=== PATIENT | female | born 1980 | race Caucasian/White ===

== ENCOUNTER → 2024-09-21 16:55 | Outpatient (REF) | payer BC, SELFPAY | LOC: RAD 16:55 | PROVIDERS: ATTENDING PHYSICIAN Obstetrics & Gynecology; FAMILY PHYSICIAN Family Medicine | DX: N93.9 Abnormal uterine and vaginal bleeding, unspecified (principal) | CPT/HCPCS: 76830; 76856 ==

== ENCOUNTER → 2024-09-26 09:50 | Outpatient (REF) | payer BC, SELFPAY | LOC: WDC 09:50 | PROVIDERS: ATTENDING PHYSICIAN Obstetrics & Gynecology | DX: Z12.31 Encounter for screening mammogram for malignant neoplasm of breast (principal) | CPT/HCPCS: 77063; 77067 ==

== ENCOUNTER 2024-10-12 14:43 | Emergency (ER) | payer BC, SELFPAY ==
[2024-10-12 15:00] VITALS: BP 116/81
--- NOTE | 2024-10-12 15:11 | ED.GENMED ---
ED Provider Triage
-
Patient seen by provider in Triage?: Seen in Triage
Attestation: A medical screening examination has been initiated by a qualified medical provider. Based on the assessment performed at this time, it has been determined that an emergent medical condition may exist and the patient has been informed
that further medical evaluation and possible additional diagnostic testing may be needed.
HPI: Patient has had some diarrhea, cough, congestion and generally feeling unwell. This morning he had a syncopal episode following coughing spell. Found to have a fever of 103 here, patient states she was unaware of any fevers at home. No
medications taken prior to arrival.
GENERAL: Alert , in no apparent distress
EYE: No visual abnormalities.
NECK: Trachea midline
ENT: No visible abnormalities.
LUNGS: No acute respiratory distress
NEUROLOGICAL: Alert and oriented
SKIN: Skin intact. No visible changes.
MUSCULOSKELETAL: Moving extremities normally
PSYCH: Normal and appropriate interaction.
This is a medical evaluation conducted in person to initiate diagnostic evaluation and provide initial therapeutics. Please see further documentation by the treating clinician. 44-year-old female presenting to the ER for evaluation of flulike
symptoms that started over the last 24 hours.
History of Present Illness
General
Chief Complaint: Fainting/Passed Out
Source: patient
Time Seen by Provider: 10/12/24 16:23
History of Present Illness
History of Present Illness:
44-year-old female presenting to the ER for evaluation of flulike symptoms that began this morning, cough, sore throat, congestion, diarrhea and generalized fatigue. Patient found to be febrile on arrival here but was unaware of any fevers at home.
During a coughing spell around 6 AM patient did have a syncopal episode. Reports no chest pain, shortness of breath, abdominal pain or any other concerns presently. No known sick contacts or recent travel.
Past History
Past History
ED Past Medical History: None
ED Past Surgical History: None
Social History
Tobacco: Non-smoker
Alcohol: None
Drug: None
Living: with family
Employment: Employed
Review of Systems
Review of Systems
All Other Systems: ROS reviewed and negative except as documented in HPI and ROS
Phy Exam
Physical Exam
Physical Exam:
GENERAL: Alert , in no apparent distress
EYE: conjunctiva clear
Head: Normocephalic atraumatic
NECK: Supple,
ENT: mmm.
LUNGS: no acute respiratory distress
NEUROLOGICAL: Alert and oriented
SKIN: Warm and dry, skin intact.
MUSCULOSKELETAL: well perfused.
PSYCH: Normal and appropriate interaction.
Scores
Heart Failure Risk
Heart Failure Risk Score: Not Applicable
Heart Score for Chest Pain Patients
STEMI patient?: Not applicable
Withdrawal Assessment of Alcohol
Withdrawal Assessment Completed?: Not applicable
Course
Orders/Labs/Results
Orders:
Orders
10/12/24 14:44
Electrocardiogram (*1) Urgent
Reason for Study: Syncope
EKG- Treatment ONCE
10/12/24 15:11
Acetaminophen [Tylenol] 650 mg .ROUTE .STK-MED ONE
Acetaminophen [Tylenol] 650 mg PO NOW STA
10/12/24 15:15
COVID-19 Antigen Urgent
Source: Nasal Swab
Influenza A+B Rapid Molecular Urgent
ALESSIA Source: Nasal Swab
Specimen Description:
Vital Signs
Initial and Last Documented VS:
Initial Vital Signs
Temp Resp BP Pulse Ox
103.2 F H 18 116/81 97
10/12/24 15:00 10/12/24 15:00 10/12/24 15:00 10/12/24 15:00
Last Documented Vital Signs
Temp Resp BP Pulse Ox
103.2 F H 18 116/81 97
10/12/24 15:00 10/12/24 15:00 10/12/24 15:00 10/12/24 15:00
MDM/Problems Addressed
Differential Diagnosis Includes:
COVID, flu, pneumonia, vagal event
MDM/Problems Addressed:
44-year-old female presenting to the emergency department for evaluation of flulike symptoms that began earlier this morning, she had a syncopal event around 620 during a coughing spell but otherwise asymptomatic presently. Found of a fever of 103
here. Did not take any medications prior to arrival. Labs and COVID/flu testing ordered and patient tested positive for the flu. She was advised on these findings. Will send a prescription for Tamiflu to pharmacy. Symptomatic treatment advised.
Patient aware of return precautions to the ER. Stable for discharge home.
*Pulse Oximetry
Patient hypoxic: no
*EKG
Heart Rate: 90
Rate: normal
Rhythm: sinus
Ischemia: no ischemia
*Critical Care Note
Total Time (30-74mins, 75-104mins- exclusive of procedures): Not Applicable
ED Attending Note
-
Portions of this chart may have been created with voice recognition software.� Occasional wrong word or��sound alike� substitutions may have occurred due to the inherent limitations of voice recognition software.
Discharge Plan
Departure
Patient Disposition: Home (Routine Discharge)
Date of Disposition: 10/12/24
Time of Disposition: 16:24
Patient with high blood pressure during this ER visit?: No
Discharge Problem:
Influenza
Instructions: Flu in adults - Discharge instructions
Prescriptions:
New
oseltamivir [Tamiflu] 75 mg capsule
75 mg PO BID Qty: 10 0RF
Stand Alone Forms: Return to Work
Interventions
Interventions:
*Risk Screen - Suicide Last Done: 10/12/24 15:00
*Nursing Disposition Last Done: 10/12/24 16:27
Discharge Date and Time
Print Language: TOGOLESE
[2024-10-12] MEDS: TYLENOL 650 MG PO (15:12)
[2024-10-12 15:44] LABS: COVID-19 Antigen Negative (Negative)
== END 2024-10-12 16:29 | disposition home or self-care (01) ==
LOC: EMR 14:43
PROVIDERS: Physician Assistant Medical; EMERGENCY PHYSICIAN Emergency Medicine; FAMILY PHYSICIAN Physician Assistant
DX: J10.1 Influenza due to other identified influenza virus with other respiratory manifestations (principal); Z11.52 Encounter for screening for COVID-19
CPT/HCPCS: 99284; 87502; 87811; 93005